=== PATIENT | male | born 1975 | race Hispanic/Latino ===

== ENCOUNTER 2022-08-31 18:12 | Emergency (ER) | payer SELFPAY ==
[~2022-08-31] VITALS: Ht 170.2 cm; Wt 99.8 kg
[2022-08-31 18:18] VITALS: O2SAT 98
[2022-08-31] MEDS ORDERED: LIDOCAINE HCL 1% LOCAL INJ 20 ML VIAL INJ STA (18:18)
[2022-08-31] MEDS ORDERED: TETANUS/DIPHTHERIA TOX ADULT 0.5 ML SYR IM STA (18:18)
[2022-08-31] MEDS ORDERED: BACITRACIN ZINC 0.9GM TP STA (18:20)
[2022-08-31] MEDS ORDERED: ULTRAM 50MG50 MG PO (19:23)
[2022-08-31] MEDS ORDERED: CEPHALEXIN500 MG PO (19:23)
== END 2022-08-31 19:41 | disposition home or self-care (01) ==
LOC: ER 18:37
DX: S62.620B Displaced fracture of middle phalanx of right index finger, initial encounter for open fracture (principal); W20.8XXA Other cause of strike by thrown, projected or falling object, initial encounter; Y92.89 Other specified places as the place of occurrence of the external cause
CPT/HCPCS: 12002; 73140; 90471; 90714; 99284; J2001